=== PATIENT | female | born 1970 | race Caucasian/White ===

== ENCOUNTER 2018-08-22 05:57 | Emergency (ER) | payer BC, OTHER ==
[~2018-08-22] VITALS: Ht 152.4 cm; Wt 91.6 kg
[~2018-08-22 05:57] MED LIST: AMLO1CAP15 PO; [UNRECOGNIZED DRUG - REMARK]
[2018-08-22 06:02] VITALS: BP 158/88; PULSE 77; RESP 16; Ht 152.4 cm; Wt 91.6 kg
[2018-08-22] MEDS ORDERED: PHENAZOPYRIDINE 100 MG TAB PO ONE (06:30)
--- NOTE | 2018-08-22 06:40 | ERD ---
ER Documentation Chief Complaint Chief Complaint Pain with urination x 3 days HPI Patient is a 48 years old female with past medical history of hypertension presenting to the clinic for dysuria, urinary urgency, urinary frequency, and suprapubic pain X 3 days. Patient denies taking any [id number]-uohavoj medication, fever, chills, night sweats, low back pain, vaginal discharge, vaginal bleeding, nausea, emesis, dizziness. Patient reports history of UTI with blood in urine without stones. Patient admits to being evaluated by a urologist for frequent UTI did not find any abnormalities. ROS All systems reviewed and are negative except as per history of present illness. Medications Home Meds Active Scripts Phenazopyridine Hcl* (Pyridium*) 100 Mg Tab, 100 MG PO TID PRN for URINARY PAIN, #8 TAB Prov:MAGDALENA CHERY PA-C 08/22/18 Nitrofurantoin Monohyd Macrocr* (Macrobid*) 100 Mg Capsr, 100 MG PO BID for 7 Days, #14 CAP Prov:MAGDALENA CHERY PA-C 08/22/18 Reported Medications [Unk Med Fam To Give] No Conflict Check 01/27/13 Amlodipine-Benazepril (Amlodipine-Benazepril) 1 Each Capsule, 1 EACH PO DAILY 01/27/13 Allergies Allergies: Coded Allergies: Amoxicillin (Verified Allergy, Unknown, rash, 01/12/14) PMhx/Soc History of Surgery: Yes (HYSTERECTOMY) Anesthesia Reaction: No Hx Neurological Disorder: No Hx Cardiac Disorders: Yes (HTN) Hx Psychiatric Problems: No Hx Miscellaneous Medical Probl: No Hx Alcohol Use: No Hx Substance Use: No Hx Tobacco Use: No Smoking Status: Never smoker Physical Exam Vitals Vital Signs Date Temp Pulse Resp B/P (MAP) Pulse Ox O2 O2 Flow FiO2 Time Delivery Rate 08/22/18 98.2 77 16 158/88 100 06:02 (111) Physical Exam Const: No acute distress Head: Atraumatic Eyes: Normal Conjunctiva Resp: Clear to auscultation bilaterally Cardio: Regular rate and rhythm, no murmurs Abd: Soft, non tender, non distended. Normal bowel sounds. Mild suprapubic tenderness. Back: No midline or flank tenderness. Negative CVAT. Neur: Awake and alert Psych: Normal Mood and Affect Results 24 hrs Laboratory Tests Test 08/22/18 06:36 Urine Color DEVON Urine Clarity SLIGHTLY CLOUDY Urine pH 5.0 Urine Specific [place] 1.013 Urine Ketones NEGATIVE mg/dL Urine Nitrite POSITIVE mg/dL Urine Bilirubin NEGATIVE mg/dL Urine Urobilinogen 2+ mg/dL Urine Leukocyte Esterase 2+ Boris/ul Urine Microscopic RBC 18 /HPF Urine Microscopic WBC > 182 /HPF Urine Squamous Epithelial Cells FEW /HPF Urine Bacteria MANY /HPF Urine Mucus FEW /HPF Urine Hemoglobin 2+ mg/dL Urine Glucose NEGATIVE mg/dL Urine Total Protein NEGATIVE mg/dl Current Medications Medications Dose Sig/Annette Start Time Status Last (Trade) Ordered Route PRN Stop Time Admin Dose Reason Admin 200 mg ONCE ONCE 08/22/18 DC 08/22/18 Phenazopyridi PO 06:30 06:35 ne HCl 08/22/18 06:31 (Pyridium) Procedures/MDM Patient was seen and evaluated for dysuria next 3 days. Urinalysis revealed leukocyte esterase, urine WBC, urine mucus, urine bacteria. Patient is most likely experiencing UTI without complications. Pyridium 20 mg was administered in ED. Patient is stable and ready for discharge. Follow-up with PCP. Patient will be discharged with Macrobid and Pyridium. Departure Diagnosis: Primary Impression: UTI (urinary tract infection) Urinary tract infection type: site unspecified Hematuria presence: without hematuria Qualified Codes: N39.0 - Urinary tract infection, site not specified Patient Instructions: Understanding Urinary Tract Infections (UTIs) Referrals: [facility] Additional Instructions: Paciente aconseja volver a Departamento de urgencias inmediatamente para s ntomas nuevos o que empeoran . Paciente aconseja posteriores con el PCP en 2-3 dawkins . Paciente verbaliza la comprehensin y est de acuerdo con el tratamiento y el curso de accin. Si el paciente no tiene ninguna de atencin primaria pueden seguir con [facility] [id number] [place] [address] o [facility] + [address] [id number] MAGDALENA CHERY PA-C Aug 22, 2018 06:40
[2018-08-22] MEDS ORDERED: PHEN-537 PO (06:58)
[2018-08-22] MEDS ORDERED: NITR-58 PO (06:58)
== END 2018-08-22 07:10 | disposition home or self-care (01) ==
LOC: FTE 05:57
DX: N39.0 Urinary tract infection, site not specified (principal); I10 Essential (primary) hypertension
CPT/HCPCS: 81001; Z7502; Z7610; 99283